=== PATIENT | female | born 1975 | race Caucasian/White ===

== ENCOUNTER 2021-05-24 00:14 | Emergency (ER) | payer OTHER ==
[2021-05-24 00:44] LABS: BASOPHIL 0.7 % (0-2); EOSINOPHIL 1.4 % (0-5); HGB 13.7 g/dl (12.5-16.0); LYMPHOCYTE 46.3 % (15-48); MCHC 33.4 g/dL (32.0-36.0); MCV 95.8 fL (78.0-100.0); MONOCYTE 7.5 % (0-12); NEUTROPHIL 43.9 % (41-80); NRBC 0; PLT 233 K/uL (150-400); RBC 4.28 M/uL (4.20-5.40); RDW 11.9 % (11.5-14.0); WBC 10.2 K/uL (4.0-10.5)
[2021-05-24 00:55] LABS: BUN/CREAT RATIO (CALC) 17.1 RATIO; CREATININE 0.82 mg/dL (0.51-0.95); POTASSIUM 3.4 mmol/L (3.5-5.1)
[2021-05-24 01:32] LABS: BILIRUBIN NEGATIVE (NEGATIVE); BLOOD 3+ Ery/uL (NEGATIVE); GLUCOSE (U) 1+ mg/dL (NORMAL); LEUKOCYTES TRACE Leu/uL (NEGATIVE); NITRITE POSITIVE (NEGATIVE); PROTEIN 2+ mg/dL (NEGATIVE); SPECIFIC GRAVITY 1.025 (1.001-1.030); UROBILINOGEN >=8.0 mg/dL (0.2-1.0)
[2021-05-24 01:33] LABS: CLARITY SLIGHTLY HAZY (CLEAR); COLOR ORANGE (YELLOW)
[2021-05-24 01:39] LABS: BACTERIA TRACE; URINARY RBC TNTC
[2021-05-24 01:40] LABS: MUCOUS TRACE
[2021-05-24] MEDS ORDERED: ONDANSETRON ODT4 MG SL (02:49)
[2021-05-24] MEDS ORDERED: NORCO 5-325 TA1 EACH PO (02:49)
[2021-05-24] MEDS ORDERED: IBUPROFEN800 MG PO (02:49)
[2021-05-24] MEDS ORDERED: FLOMAX0.4 MG PO (02:49)
[2021-05-24] MEDS ORDERED: BACTRIM DS TAB1 EACH PO (02:52)
== END 2021-05-24 03:02 | disposition home or self-care (01) ==
LOC: FER 00:14
PROVIDERS: Emergency Medicine Emergency Medical Services
DX: N13.2 Hydronephrosis with renal and ureteral calculous obstruction (principal)
CPT/HCPCS: 36415; 74018; 80048; 81001; 85025; J0696; J1170; J1885; J2405; J7030